=== PATIENT | female | born 1955 | race Caucasian/White ===

== ENCOUNTER 2018-05-22 18:58 | Emergency (ER) | payer MEDICAID ==
[~2018-05-22] VITALS: Ht 157.5 cm; Wt 76.2 kg
[~2018-05-22 18:58] MED LIST: ARIP20TA4 PO
[2018-05-22 19:01] VITALS: BP_SYST 169
[2018-05-22] MEDS ORDERED: LIDOCAINE 1% 10 MG/ML, 20 ML MDV INJ ONE (21:00)
[2018-05-22] MEDS ORDERED: HYDROcodone/ACETAMIN 10-325 MG TAB PO ONE (21:00)
[2018-05-22] MEDS ORDERED: DIPH-TET-PERTUS Vaccine 0.5 ML VIAL (ADACEL) I.M. ONE (21:45)
[2018-05-22 22:30] VITALS: BP_SYST 132
== END 2018-05-22 22:30 | disposition home or self-care (01) ==
LOC: SED 18:58
DX: S02.5XXA Fracture of tooth (traumatic), initial encounter for closed fracture (principal); S01.511A Laceration without foreign body of lip, initial encounter; S50.11XA Contusion of right forearm, initial encounter; F32.9 Major depressive disorder, single episode, unspecified; R03.0 Elevated blood-pressure reading, without diagnosis of hypertension; W22.8XXA Striking against or struck by other objects, initial encounter; Y93.89 Activity, other specified; Y92.89 Other specified places as the place of occurrence of the external cause; Y99.8 Other external cause status
CPT/HCPCS: 70450-TC; 70486-TC; 90715; 99284

== ENCOUNTER 2021-05-08 14:20 | Emergency (ER) | payer MEDICAID ==
[~2021-05-08] VITALS: Ht 157.5 cm; Wt 73.9 kg
[2021-05-08 14:35] VITALS: BP_SYST 144
[2021-05-08] MEDS ORDERED: HYDR-3917 PO (14:51)
[2021-05-08] MEDS ORDERED: PENI250T2 PO (14:51)
[2021-05-08] MEDS ORDERED: KETOROLAC TROMETHAMINE 60 MG/2 ML VIAL IM ONE (15:00)
[2021-05-08 15:28] VITALS: BP_SYST 132
== END 2021-05-08 15:28 | disposition home or self-care (01) ==
LOC: SED 14:20
DX: K04.7 Periapical abscess without sinus (principal); F32.9 Major depressive disorder, single episode, unspecified; Z79.899 Other long term (current) drug therapy
CPT/HCPCS: 96372; 99283; J1885

== ENCOUNTER 2021-10-30 12:00 | Emergency (ER) | payer MEDICAID ==
[~2021-10-30] VITALS: Ht 157.5 cm; Wt 69.4 kg
[~2021-10-30 12:00] MED LIST changes: +HYDR-3917 PO; +PENI250T2 PO
[2021-10-30 12:10] VITALS: BP_SYST 133
--- NOTE | 2021-10-30 12:27 | NUR ---
Aguila Hassan right upper tooth ache. at bedside
[2021-10-30] MEDS ORDERED: AMOX-423 PO (12:36)
[2021-10-30 12:48] VITALS: BP_SYST 129
--- NOTE | 2021-10-30 12:49 | NUR ---
Patient given written and verbal discharge instructions and verbalizes understanding. BEE RYAN MD discussed with patient the results and treatment provided. Patient in stable condition. ID arm band removed. Rx of AMOXICILLIN given. Patient educated on pain management and to follow up with PMD. Pain Scale 0. Opportunity for questions provided and answered. Medication side effect fact sheet provided.
== END 2021-10-30 12:49 | disposition home or self-care (01) ==
LOC: SED 12:00
DX: K08.89 Other specified disorders of teeth and supporting structures (principal); F32.9 Major depressive disorder, single episode, unspecified; Z79.899 Other long term (current) drug therapy
CPT/HCPCS: 99283

== ENCOUNTER 2023-04-01 10:13 | Emergency (ER) | payer MEDICARE, MEDICAID ==
[~2023-04-01] VITALS: Ht 157.5 cm; Wt 74.8 kg
[2023-04-01 10:13] VITALS: BP_SYST 149; PULSE 102; RESP 18; TEMP 98.9; O2SAT 99
[~2023-04-01 10:13] MED LIST changes: +AMOX-423 PO
[2023-04-01 10:48] LABS: BILIRUBIN,URINE NEGATIVE (NEGATIVE); BLOOD, URINE 3+ (NEGATIVE); CLARITY/URINE Slightly Cloudy (CLEAR); COLOR,URINE YELLOW (YELLOW); GLUCOSE,URINE NEGATIVE (NEGATIVE); KETONES,URINE NEGATIVE (NEGATIVE); NITRITE, URINE NEGATIVE (NEGATIVE); PROTEIN URINE NEGATIVE (NEGATIVE)
[2023-04-01 10:58] LABS: LEUKOCYTE ESTERASE ,URINE NEGATIVE (NEGATIVE)
[2023-04-01 10:59] LABS: BACTERIA,URINE None Seen /HPF (None Seen); RBC,URINE >100 /HPF (0-3); WBC,URINE 0-3 /HPF (0-3)
[2023-04-01] MEDS ORDERED: TAMS-11 PO (11:07)
[2023-04-01] MEDS ORDERED: IBUP-1969 PO (11:07)
[2023-04-01] MEDS ORDERED: HYDR-3917 PO (11:07)
[2023-04-01 11:18] VITALS: BP_SYST 155; PULSE 87; RESP 18; TEMP 98.2; O2SAT 99
== END 2023-04-01 11:21 | disposition home or self-care (01) ==
LOC: SED 10:13
DX: R31.9 Hematuria, unspecified (principal); R10.9 Unspecified abdominal pain; Z79.899 Other long term (current) drug therapy
CPT/HCPCS: 81000; 81003; 99283